=== PATIENT | female | born 1990 | race Caucasian/White ===

== ENCOUNTER 2019-05-13 16:05 | Inpatient (IN) | payer MEDICAID ==
[~2019-05-13] VITALS: Ht 160 cm; Wt 65.8 kg
[2019-05-13] MEDS ORDERED: CARBOPROST TROMETHAMINE 250 MCG/ML AMPUL IM PRN (17:30)
[2019-05-13] MEDS ORDERED: NALOXONE HCL 0.4 MG/ML 1ML VIAL IM PRN (17:30)
[2019-05-13] MEDS ORDERED: DEXT 5%/LR + PITOCIN 20UNITS/L 1,000 ML IV SCH ×2 (17:30→20:52)
[2019-05-13] MEDS ORDERED: METHYLERGONOVINE MALEATE 0.2 MG/ML IM PRN (17:30)
[2019-05-13] MEDS ORDERED: LACTATED RINGERS 1,000 ML IV SCH (17:45)
[2019-05-13 17:48] LABS: BASOPHILS % 0.3 % (0.0-2.0); EOSINOPHILS % 0.5 % (0.0-5.0); HEMATOCRIT. 32.8 % (36.0-48.0); HEMOGLOBIN. 11.6 g/dL (12.0-16.0); LYMPHOCYTES % 23.4 % (20.0-50.0); MEAN CORPUSCULAR HEMOGLOBIN 30.3 pg (28.0-32.0); MEAN CORPUSCULAR VOLUME 85.8 fL (81.0-99.0); MEAN PLATELET VOLUME 7.3 fl (7.4-10.4); MONOCYTES % 6.9 % (2.0-8.0); NEUTROPHILS % 68.9 % (40.0-76.0); PLATELET 281 x1000/uL (130-400); RED BLOOD CELL COUNT 3.82 mill/uL (4.2-5.4); RED CELL DISTRIBUTION WIDTH 13.5 % (11.6-14.6)
[2019-05-13 17:51] LABS: CLARITY URINE CLOUDY (CLEAR); COLOR URINE YELLOW (YELLOW); KETONES URINE NEGATIVE (NEGATIVE); LEUKOCYTE ESTERASE URINE TRACE (NEGATIVE); NITRITE URINE NEGATIVE (NEGATIVE); OCCULT BLOOD URINE NEGATIVE (NEGATIVE); PH URINE 7.5 (4.5-8.0); PROTEIN URINE NEGATIVE (NEGATIVE); SPECIFIC GRAVITY URINE 1.008 (1.005-1.030); UROBILINOGEN URINE 0.2 E.U./dL (0.2-1.0)
[2019-05-13 17:57] LABS: PARTIAL THROMBOPLASTIN TIME 26.3 sec (23.4-31.0); PROTHROMBIN TIME 9.9 sec (9.6-11.0)
[2019-05-13 18:12] LABS: *AMPHETAMINES SCREEN URINE NEGATIVE (NEGATIVE); *BARBITURATES SCREEN URINE NEGATIVE (NEGATIVE); *BENZODIAZEPINES SCREEN URINE NEGATIVE (NEGATIVE); *COCAINE SCREEN URINE NEGATIVE (NEGATIVE); METHADONE URINE SCREEN NEGATIVE (NEGATIVE); OPIATES URINE SCREEN NEGATIVE (NEGATIVE)
[2019-05-13 18:13] LABS: PHENCYCLIDINE URINE SCREEN NEGATIVE (NEGATIVE)
[2019-05-13 19:02] LABS: CANNABINOID URINE SCREEN PRESUMTIVE POSITIVE (NEGATIVE)
[2019-05-13] MEDS ORDERED: OXYTOCIN 10 UNITS/ML 1ML ONE (19:21)
[2019-05-13] MEDS ORDERED: EPHEDRINE SULFATE 50MG/ML VIAL ONE (19:21)
[2019-05-13] MEDS ORDERED: PHENYLEPHRINE HCL 10 MG/ML 1ML (IV VIAL) IV ONE (19:21)
[2019-05-13] MEDS ORDERED: MORPHINE SULFATE/PF 1MG/ML 10ML AMP ONE (19:21)
[2019-05-13] MEDS ORDERED: SUCCINYLCHOLINE CHLORIDE 200MG/10ML IV ONE (19:21)
[2019-05-13] MEDS ORDERED: CEFAZOLIN SODIUM 1000MG/VIAL ONE (19:22)
[2019-05-13] MEDS ORDERED: ETOMIDATE 2MG/ML 10ML VIAL IV ONE (19:37)
[2019-05-13] MEDS ORDERED: ONDANSETRON HCL 4MG/2ML INJ ONE (19:51)
[2019-05-13 20:01] LABS: HEPATITIS B SURFACE ANTIGEN NEGATIVE
[2019-05-13] MEDS ORDERED: HYDROCODONE/ACETAMINOPHEN 5/325MG TABLET PO PRN (21:00)
[2019-05-13] MEDS ORDERED: ONDANSETRON HCL 4MG/2ML INJ IV PRN ×2 (21:00→22:45)
[2019-05-13] MEDS ORDERED: BISACODYL 10MG SUPP PR PRN (21:00)
[2019-05-13] MEDS ORDERED: LANOLIN OINT 7GM TUBE TOP PRN (21:00)
[2019-05-13] MEDS ORDERED: RHO(D) IMMUNE GLOBULIN 300 MCG/SYR IM PRN (21:00)
[2019-05-13] MEDS ORDERED: HEMORRHOIDAL SUPP PR PRN (21:00)
[2019-05-13] MEDS ORDERED: DOCUSATE SODIUM 100MG CAPSULE PO SCH (21:00)
[2019-05-13] MEDS ORDERED: IBUPROFEN 400MG TABLET PO PRN (21:00)
[2019-05-13 21:45] VITALS: BP 106/55
[2019-05-13 22:30] VITALS: BP 110/60
[2019-05-13] MEDS ORDERED: FENTANYL CITRATE/PF 50MCG/ML 2ML VIAL IV PRN (22:45)
[2019-05-13] MEDS ORDERED: DEXAMETHASONE 10 MG/ML VIAL IV PRN (22:45)
[2019-05-13] MEDS ORDERED: KETOROLAC 30MG/ML VIAL IV PRN (22:45)
[2019-05-13] MEDS ORDERED: NALOXONE HCL 0.4 MG/ML 1ML VIAL IV PRN (22:45)
[2019-05-13] MEDS ORDERED: ONDANSETRON HCL 4MG/2ML INJ IM PRN (22:45)
[2019-05-13] MEDS ORDERED: DIPHENHYDRAMINE 50MG/ML VIAL IM PRN (22:45)
[2019-05-13] MEDS ORDERED: DIPHENHYDRAMINE 50MG/ML VIAL IV PRN (22:45)
[2019-05-14] VITALS: BP 100/56
[2019-05-14] MEDS ORDERED: IBUPROFEN 800 MG in SODIUM CHLORIDE 0.9% 250 ML IV NR ×2
[2019-05-14 04:00] VITALS: BP 89/48
[2019-05-14 06:53] LABS: BASOPHILS % 0.2 % (0.0-2.0); EOSINOPHILS % 1.2 % (0.0-5.0); HEMATOCRIT. 27.8 % (36.0-48.0); HEMOGLOBIN. 9.5 g/dL (12.0-16.0); LYMPHOCYTES % 23.1 % (20.0-50.0); MEAN CORPUSCULAR HEMOGLOBIN 30.2 pg (28.0-32.0); MEAN CORPUSCULAR VOLUME 88.7 fL (81.0-99.0); MEAN PLATELET VOLUME 7.2 fl (7.4-10.4); MONOCYTES % 6.9 % (2.0-8.0); NEUTROPHILS % 68.6 % (40.0-76.0); PLATELET 225 x1000/uL (130-400); RED BLOOD CELL COUNT 3.13 mill/uL (4.2-5.4); RED CELL DISTRIBUTION WIDTH 13.3 % (11.6-14.6)
[2019-05-14 08:30] VITALS: BP 104/54
[2019-05-14] MEDS: ACETAMINOPHEN WITH CODEINE 300/30MG TABLET PO PRN ×4 (11:13→23:32)
[2019-05-14] MEDS: FERROUS SULFATE 325MG TABLET PO SCH (15:19)
[2019-05-14] MEDS: PRENATAL VIT/FE FUMARATE/FA TABLET PO SCH (15:19)
[2019-05-14 16:14] VITALS: BP 113/60
[2019-05-14 19:35] VITALS: BP 108/57
[2019-05-14] MEDS: SIMETHICONE 80MG TABLET CHEW PO SCH (21:26)
[2019-05-15 04:00] VITALS: BP 100/57
[2019-05-15] MEDS: PRENATAL VIT/FE FUMARATE/FA TABLET PO SCH (08:38)
[2019-05-15] MEDS: FERROUS SULFATE 325MG TABLET PO SCH ×2 (08:39→13:03)
[2019-05-15 09:30] VITALS: BP 112/64
[2019-05-15] MEDS: ACETAMINOPHEN WITH CODEINE 300/30MG TABLET PO PRN (13:02)
[2019-05-15] MEDS: SIMETHICONE 80MG TABLET CHEW PO SCH (13:03)
[2019-05-19 10:11] LABS: CANNABINOID CONFIRMATION URINE Positive (.)
== END 2019-05-15 15:40 | disposition home or self-care (01) | DRG 540 ==
LOC: 8 EST LDRP 16:05 → OBSVTOIN 16:05 → 8 EST LDRP 16:22 → 8EST NSY 22:00 → 8EST 05-14 15:43
PROVIDERS: ADMIT Obstetrics & Gynecology; ATTEND Obstetrics & Gynecology
PROC: 10D00Z1 Extraction of Products of Conception, Low, Open Approach (ICD-10-PCS; principal; 2019-05-13)
DX: O34.211 Maternal care for low transverse scar from previous cesarean delivery (principal); O99.324 Drug use complicating childbirth; F12.10 Cannabis abuse, uncomplicated; O99.02 Anemia complicating childbirth; Z37.0 Single live birth; Z3A.00 Weeks of gestation of pregnancy not specified
CPT/HCPCS: 36415; 80305; 80349; 81003; 86592; 86703; 86762; 86850; 86900; 86920; 87340; 88307; 99281; J0330; J0690; J1741; J1885; J2274; J2370; J2405; J2590; J3490; J7050; J7120

== ENCOUNTER 2020-12-22 12:56 | Emergency (ER) | payer MEDICAID, OTHER ==
[~2020-12-22] VITALS: Ht 162.6 cm; Wt 69.0 kg
[2020-12-22] MEDS ORDERED: ACETAMINOPHEN WITH CODEINE 300/30MG TABLET PO ONE (13:15)
[2020-12-22] MEDS ORDERED: T3 PO (14:14)
[2020-12-22] MEDS ORDERED: IBUP-2029 MT (14:14)
[2020-12-22 15:54] VITALS: BP 121/81
== END 2020-12-22 15:56 | disposition home or self-care (01) ==
LOC: ER 12:56
DX: S82.54XA Nondisplaced fracture of medial malleolus of right tibia, initial encounter for closed fracture (principal); W01.0XXA Fall on same level from slipping, tripping and stumbling without subsequent striking against object, initial encounter; Y93.89 Activity, other specified; Y92.480 Sidewalk as the place of occurrence of the external cause
CPT/HCPCS: 29505; 73590; 73610; 73630; 81025; 99284

== ENCOUNTER 2021-08-17 13:30 | Emergency (ER) | payer OTHER ==
[~2021-08-17] VITALS: Ht 165.1 cm; Wt 60.0 kg
[~2021-08-17 13:30] MED LIST: IBUP-2029 MT; T3 PO
[2021-08-17 15:28] LABS: BASOPHILS % 0.5 % (0.0-2.0); EOSINOPHILS % 0.1 % (0.0-5.0); HEMATOCRIT. 41.9 % (36.0-48.0); HEMOGLOBIN. 14.4 g/dL (12.0-16.0); LYMPHOCYTES % 14.2 % (20.0-50.0); MEAN CORPUSCULAR HEMOGLOBIN 29.5 pg (28.0-32.0); MEAN CORPUSCULAR VOLUME 85.5 fL (81.0-99.0); MEAN PLATELET VOLUME 6.5 fl (7.4-10.4); MONOCYTES % 5.4 % (2.0-8.0); NEUTROPHILS % 79.8 % (40.0-76.0); PLATELET 489 x1000/uL (130-400); RED BLOOD CELL COUNT 4.89 mill/uL (4.2-5.4); RED CELL DISTRIBUTION WIDTH 12.9 % (11.6-14.6)
[2021-08-17 15:33] LABS: CHLORIDE 103 mEq/L (98-107)
[2021-08-17] MEDS ORDERED: SODIUM CHLORIDE 0.9% 1,000 ML IV ONE (16:15)
[2021-08-17] MEDS ORDERED: KETOROLAC 15MG/ML VIAL IV ONE (16:30)
[2021-08-17] MEDS ORDERED: PENICILLIN G BENZATHINE 1,200,000 UNITS/2ML SYR IM ONE (19:00)
[2021-08-17 20:00] VITALS: BP 105/58
== END 2021-08-17 20:26 | disposition home or self-care (01) ==
LOC: ER 13:38
DX: R06.02 Shortness of breath (principal); R05.9 Cough, unspecified; Z20.822 Contact with and (suspected) exposure to COVID-19; M79.18 Myalgia, other site
CPT/HCPCS: 36415; 71045; 80053; 84484; 85025; 85379; 87040; 87430; 87804; 93005; 96361; 96372; 96374; 99285; C9803; J0561; J1885; J7030; U0003; U0005